=== PATIENT | male | born 1950 | race Caucasian/White ===

== ENCOUNTER 2018-01-18 14:55 | Inpatient (IN) | payer MEDICARE, OTHER, SELFPAY ==
[~2018-01-18] VITALS: Ht 172.7 cm; Wt 82.7 kg
[2018-01-18] MEDS ORDERED: OMEP-110 PO (15:12)
[2018-01-18] MEDS ORDERED: ATOR20TA9 PO (15:12)
[2018-01-18] MEDS ORDERED: METF500T27 PO (15:12)
[2018-01-18] MEDS ORDERED: LOSA25TA6 PO (15:12)
[2018-01-18] MEDS ORDERED: LEVO25TA4 PO (15:12)
[2018-01-18] MEDS ORDERED: MORPHINE SULFATE 4 MG/ML, 1ML ONE (15:24)
[2018-01-18] MEDS ORDERED: FAMOTIDINE 20 MG/2 ML ONE (15:25)
[2018-01-18] MEDS: FAMOTIDINE 20 MG/2 ML IVP ONE ×2 (15:26→15:28)
[2018-01-18] MEDS ORDERED: ONDANSETRON 2MG/ML, 2ML ONE (15:27)
[2018-01-18] MEDS ORDERED: SODIUM CHLORIDE FLUSH 10ML SYR IVF ONE (15:30)
[2018-01-18] MEDS ORDERED: SODIUM CHLORIDE 0.9% 1,000ML IVBOLUS ONE (15:30)
[2018-01-18] MEDS ORDERED: MORPHINE SULFATE 4 MG/ML, 1ML IVPush PRN (15:30)
[2018-01-18] MEDS ORDERED: ONDANSETRON 2MG/ML, 2ML IVPush ONE (15:30)
[2018-01-18 15:42] LABS: BASOPHILS # (AUTO) 0.04 x10^3/uL (0-0.1); BASOPHILS % (AUTO) 0 % (0-1); EOSINOPHILS # (AUTO) 0.01 x10^3/uL (0-0.4); EOSINOPHILS % (AUTO) 0 % (1-7); LYMPHOCYTES % (AUTO) 12 % (22-44); MD NO; MEAN CORPUSCULAR HEMOGLOBIN 33.2 pg (27.5-34.5); MEAN CORPUSCULAR HGB CONC 33.5 g/dL (33.2-36.2); MEAN CORPUSCULAR VOLUME 99.1 fL (81-97); MEAN PLATELET VOLUME 7.5 fL (7.4-10.4); MONOCYTES # (AUTO) 0.39 x10^3/uL (0.2-0.8); MONOCYTES % (AUTO) 5 % (2-9); NEUTROPHILS # (AUTO) 7.16 x10^3/uL (1.8-6.8); NEUTROPHILS % (AUTO) 83 % (42-75); PLATELET COUNT 197 x10^3/uL (130-400); RED BLOOD COUNT 4.15 x10^6/uL (4.38-5.82); RED CELL DISTRIBUTION WIDTH 13.8 % (9.4-14.8)
[2018-01-18 15:52] LABS: ANION GAP 24 mmol/L (5-15); CALCIUM 9.8 mg/dL (8.5-10.1); CHLORIDE 99 mmol/L (98-107); CREATININE 1.71 mg/dL (0.7-1.3)
[2018-01-18 15:53] LABS: ALANINE AMINOTRANSFERASE 48 U/L (12-78); ALBUMIN 4.5 g/dL (3.4-5.0)
[2018-01-18 15:55] LABS: ALKALINE PHOSPHATASE 72 U/L (45-117); BILIRUBIN,TOTAL 0.9 mg/dL (0.2-1.0); TOTAL PROTEIN 8.3 g/dL (6.4-8.2)
[2018-01-18 16:00] LABS: ACETONE, SERUM Large (80mg/dL) mg/dL (Negative)
[2018-01-18] MEDS ORDERED: HYDROmorphone 1 MG/ML, 1ML IV ONE (16:30)
[2018-01-18] MEDS ORDERED: HYDROmorphone 2 MG/ML, 1ML ONE (16:41)
[2018-01-18] MEDS: D5%-0.45% NACL 1,000 ML IV SCH ×2 (16:55→20:30)
[2018-01-18] MEDS ORDERED: POTASSIUM CHLORIDE 20 MEQ, MAGNESIUM SULFATE 1 GM, MVI ADULT 10 ML, THIAMINE 200 MG, FO... IV SCH (17:30)
[2018-01-18] MEDS ORDERED: LORazepam 1MG TABLET PO PRN ×4 (17:30)
[2018-01-18] MEDS ORDERED: ONDANSETRON ODT 4 MG PO PRN (17:30)
[2018-01-18] MEDS ORDERED: LORazepam 0.5MG TABLET PO PRN (17:30)
[2018-01-18] MEDS: INSULIN LISPRO 100 UNITS/ML, PEN SQ-INSULIN SCH ×2 (17:30→21:30)
[2018-01-18] MEDS ORDERED: LORazepam 2 MG/ML, 1ML IV PRN ×5 (17:30)
[2018-01-18 18:32] LABS: HEMOGLOBIN A1C 5.4 % (4.2-6.3)
[2018-01-18 18:40] VITALS: BP 151/91
[2018-01-18 20:49] VITALS: BP 168/85
[2018-01-18] MEDS: HEPARIN 5,000 UNITS/ML, 1ML SQ SCH (21:31)
[2018-01-18] MEDS: ATORVASTATIN 40 MG TABLET PO SCH (21:31)
[2018-01-19] VITALS (7 sets, daily range): BP systolic 149–205; BP diastolic 78–102
[2018-01-19] MEDS: ONDANSETRON 2MG/ML, 2ML IVPush PRN ×4 (00:07→21:47)
[2018-01-19] MEDS: hydrALAzine 20 MG/ML, 1ML IVPush PRN ×4 (02:54→18:09)
[2018-01-19] MEDS: HYDROmorphone 2 MG/ML, 1ML IVPush PRN ×5 (03:03→12:41)
[2018-01-19 05:49] LABS: ALBUMIN 4.1 g/dL (3.4-5.0); ANION GAP 13 mmol/L (5-15); CALCIUM 8.7 mg/dL (8.5-10.1); CHLORIDE 102 mmol/L (98-107)
[2018-01-19 05:53] LABS: BASOPHILS % (AUTO) 0 % (0-1); EOSINOPHILS % (AUTO) 0 % (1-7); LYMPHOCYTES # (AUTO) 0.25 x10^3/uL (1-3.4); LYMPHOCYTES % (AUTO) 3 % (22-44); MD NO; MEAN CORPUSCULAR HEMOGLOBIN 34.2 pg (27.5-34.5); MEAN CORPUSCULAR HGB CONC 33.9 g/dL (33.2-36.2); MEAN CORPUSCULAR VOLUME 100.7 fL (81-97); MEAN PLATELET VOLUME 7.2 fL (7.4-10.4); MONOCYTES # (AUTO) 0.49 x10^3/uL (0.2-0.8); MONOCYTES % (AUTO) 6 % (2-9); NEUTROPHILS # (AUTO) 7.46 x10^3/uL (1.8-6.8); NEUTROPHILS % (AUTO) 91 % (42-75); PLATELET COUNT 147 x10^3/uL (130-400); RED BLOOD COUNT 3.86 x10^6/uL (4.38-5.82); RED CELL DISTRIBUTION WIDTH 13.6 % (9.4-14.8)
[2018-01-19 05:56] LABS: ALANINE AMINOTRANSFERASE 40 U/L (12-78); ALKALINE PHOSPHATASE 61 U/L (45-117); BILIRUBIN,TOTAL 0.8 mg/dL (0.2-1.0); TOTAL PROTEIN 7.5 g/dL (6.4-8.2)
[2018-01-19] MEDS: HEPARIN 5,000 UNITS/ML, 1ML SQ SCH ×3 (06:28→21:51)
[2018-01-19] MEDS: INSULIN LISPRO 100 UNITS/ML, PEN SQ-INSULIN SCH ×4 (07:17→21:51)
[2018-01-19] MEDS: OMEPRAZOLE 20 MG CAPSULE.DR PO SCH (07:24)
[2018-01-19] MEDS: LEVOTHYROXINE 25 MCG TABLET PO SCH (07:24)
[2018-01-19] MEDS ORDERED: LOSARTAN 25MG TABLET PO SCH (09:00)
[2018-01-19] MEDS: CHLORDIAZEPOXIDE 25 MG CAPSULE PO SCH ×2 (15:59→21:52)
[2018-01-19] MEDS ORDERED: HYDROcodone/APAP 5/325 TABLET PO PRN (16:00)
[2018-01-19 17:42] LABS: ALBUMIN 4.2 g/dL (3.4-5.0); ANION GAP 12 mmol/L (5-15); CALCIUM 8.7 mg/dL (8.5-10.1); CHLORIDE 102 mmol/L (98-107)
[2018-01-19 17:43] LABS: CREATININE 1.39 mg/dL (0.7-1.3)
[2018-01-19] MEDS ORDERED: MAALOX/HYOSCYAMINE/LIDOCAINE 45 ML BTL PO ONE (18:00)
[2018-01-19] MEDS: SODIUM CHLORIDE 0.45% 1,000 ML IV SCH (18:00)
[2018-01-19 19:10] LABS: THYROID STIMULATING HORMONE 1.37 mIU/L (0.358-3.740)
[2018-01-19] MEDS: PANTOPRAZOLE 40 MG IV IVPush SCH (21:51)
[2018-01-19] MEDS: MAGNESIUM SULFATE 1 GM, MVI ADULT 10 ML, THIAMINE 200 MG, FOLIC ACID 1 MG in SODIUM CHL... IV SCH (21:52)
[2018-01-19] MEDS: ATORVASTATIN 40 MG TABLET PO SCH (21:52)
[2018-01-19] MEDS: GABAPENTIN 100 MG CAPSULE PO SCH (21:52)
[2018-01-20 03:39] VITALS: BP 156/98
[2018-01-20] MEDS: SODIUM CHLORIDE 0.45% 1,000 ML IV SCH (05:02)
[2018-01-20] MEDS: HEPARIN 5,000 UNITS/ML, 1ML SQ SCH (06:01)
[2018-01-20] MEDS: INSULIN LISPRO 100 UNITS/ML, PEN SQ-INSULIN SCH ×4 (07:00→21:28)
[2018-01-20 08:00] VITALS: BP 166/90
[2018-01-20] MEDS ORDERED: LACTULOSE 20 GM/30 ML UDC ONE (08:40)
[2018-01-20] MEDS: LEVOTHYROXINE 25 MCG TABLET PO SCH (08:58)
[2018-01-20] MEDS: CHLORDIAZEPOXIDE 25 MG CAPSULE PO SCH ×3 (08:58→21:27)
[2018-01-20] MEDS: OMEPRAZOLE 20 MG CAPSULE.DR PO SCH (08:58)
[2018-01-20] MEDS: AMLODIPINE 2.5 MG TABLET PO SCH (08:58)
[2018-01-20] MEDS: GABAPENTIN 100 MG CAPSULE PO SCH ×3 (08:58→21:27)
[2018-01-20] MEDS: PANTOPRAZOLE 40 MG IV IVPush SCH ×2 (08:59→21:27)
[2018-01-20] MEDS ORDERED: LACTULOSE 20 GM/30 ML UDC PO PRN (09:00)
[2018-01-20] MEDS: D5%-0.9% NACL+KCL 20MEQ 1,000 ML IV SCH ×2 (09:34→21:26)
[2018-01-20] MEDS: ACETAMINOPHEN 325 MG TABLET PO PRN (11:49)
[2018-01-20 14:00] VITALS: BP 149/73
[2018-01-20] MEDS ORDERED: MAGNESIUM SULFATE 1 GM, MVI ADULT 10 ML, THIAMINE 200 MG, FOLIC ACID 1 MG in SODIUM CHL... IV SCH (17:30)
[2018-01-20] MEDS ORDERED: SODIUM CHLORIDE 0.9%, 500ML IVBOLUS ONE (18:00)
[2018-01-20 19:30] VITALS: BP 117/87
[2018-01-20] MEDS ORDERED: DILTIAZEM 125 MG in SODIUM CHLORIDE 0.9% 100 ML IV ONE (20:00)
[2018-01-20 20:30] LABS: FREE T4 (FREE THYROXINE) 1.14 ng/dL (0.76-1.46); THYROID STIMULATING HORMONE 1.16 mIU/L (0.358-3.740)
[2018-01-20] MEDS ORDERED: MAGNESIUM SULFATE PMX 2GM/50ML 50 ML IV ONE ×2 (21:00)
[2018-01-20] MEDS: ATORVASTATIN 40 MG TABLET PO SCH (21:27)
[2018-01-21 01:53] VITALS: BP 150/85
[2018-01-21 04:11] VITALS: BP 148/93
[2018-01-21 04:44] LABS: ALBUMIN 2.6 g/dL (3.4-5.0); ANION GAP 6 mmol/L (5-15); CALCIUM 7.4 mg/dL (8.5-10.1); CHLORIDE 105 mmol/L (98-107); CREATININE 1.32 mg/dL (0.7-1.3); TRIGLYCERIDES 116 mg/dL (50-200)
[2018-01-21] MEDS: MAGNESIUM SULFATE 1 GM, MVI ADULT 10 ML, THIAMINE 200 MG, FOLIC ACID 1 MG in SODIUM CHL... IV SCH (05:35)
[2018-01-21] MEDS: D5%-0.9% NACL+KCL 20MEQ 1,000 ML IV SCH (07:00)
[2018-01-21 07:29] VITALS: BP 148/82
[2018-01-21] MEDS: AMLODIPINE 2.5 MG TABLET PO SCH (08:28)
[2018-01-21] MEDS: CHLORDIAZEPOXIDE 25 MG CAPSULE PO SCH (08:28)
[2018-01-21] MEDS: OMEPRAZOLE 20 MG CAPSULE.DR PO SCH (08:28)
[2018-01-21] MEDS: PANTOPRAZOLE 40 MG IV IVPush SCH ×2 (08:28→20:38)
[2018-01-21] MEDS: INSULIN LISPRO 100 UNITS/ML, PEN SQ-INSULIN SCH ×5 (08:28→22:00)
[2018-01-21] MEDS: LEVOTHYROXINE 25 MCG TABLET PO SCH (08:28)
[2018-01-21] MEDS: GABAPENTIN 100 MG CAPSULE PO SCH ×3 (08:28→20:39)
[2018-01-21] MEDS ORDERED: SODIUM PHOSPHATE 20 MMOL in SODIUM CHLORIDE 0.9% 500 ML IV ONE (10:00)
[2018-01-21 12:53] VITALS: BP 144/80
[2018-01-21] MEDS: ACETAMINOPHEN 325 MG TABLET PO PRN (18:22)
[2018-01-21 19:45] VITALS: BP 151/76
[2018-01-21] MEDS: ATORVASTATIN 40 MG TABLET PO SCH (20:39)
[2018-01-22 00:46] VITALS: BP 155/85
[2018-01-22 04:31] LABS: ALBUMIN 2.6 g/dL (3.4-5.0); ANION GAP 9 mmol/L (5-15); CALCIUM 7.4 mg/dL (8.5-10.1); CHLORIDE 105 mmol/L (98-107)
[2018-01-22 04:34] LABS: CREATININE 1.22 mg/dL (0.7-1.3)
[2018-01-22] MEDS ORDERED: SODIUM PHOSPHATE 20 MMOL in SODIUM CHLORIDE 0.9% 500 ML IV ONE (06:30)
[2018-01-22] MEDS: PANTOPRAZOLE 40 MG IV IVPush SCH (07:57)
[2018-01-22] MEDS: LEVOTHYROXINE 25 MCG TABLET PO SCH (07:57)
[2018-01-22] MEDS: OMEPRAZOLE 20 MG CAPSULE.DR PO SCH (07:57)
[2018-01-22] MEDS: GABAPENTIN 100 MG CAPSULE PO SCH (07:57)
[2018-01-22 08:00] VITALS: BP 141/84
[2018-01-22] MEDS: AMLODIPINE 2.5 MG TABLET PO SCH (08:02)
[2018-01-22] MEDS: INSULIN LISPRO 100 UNITS/ML, PEN SQ-INSULIN SCH ×2 (08:04→12:23)
[2018-01-22] MEDS ORDERED: D5%-0.9% NACL+KCL 20MEQ 1,000 ML IV SCH (08:30)
[2018-01-22] MEDS ORDERED: NEUTRA PHOS K 250 MG TABLET PO SCH (09:00)
== END 2018-01-22 15:45 | disposition home or self-care (01) | DRG 438 ==
LOC: ED 16:53 → EDIP 16:54 → ED 17:22 → 4NOR 18:26 → 4WST 01-19 17:22
PROVIDERS: ADMIT Internal Medicine; ATTEND Hospitalist
DX: K85.20 Alcohol induced acute pancreatitis without necrosis or infection (principal); N17.0 Acute kidney failure with tubular necrosis; E87.2 Acidosis; E03.9 Hypothyroidism, unspecified; E11.9 Type 2 diabetes mellitus without complications; E78.5 Hyperlipidemia, unspecified; E87.5 Hyperkalemia; F10.129 Alcohol abuse with intoxication, unspecified; F12.90 Cannabis use, unspecified, uncomplicated; I10 Essential (primary) hypertension; K70.10 Alcoholic hepatitis without ascites; Z79.899 Other long term (current) drug therapy; Z82.49 Family history of ischemic heart disease and other diseases of the circulatory system; Z82.5 Family history of asthma and other chronic lower respiratory diseases; Z86.19 Personal history of other infectious and parasitic diseases
CPT/HCPCS: 36415; 74018; 76700; 80048; 80053; 80307; 82010; 82040; 82607; 82746; 82962; 83036; 83690; 83735; 84100; 84439; 84443; 84478; 85025; 93005; 93306; 96361; 96374; 96375; 99285; G0378; J1170; J1644; J2405; J3411; J3475; J3480; C9113; J0360; J1815; J2060; J7030; J7040; S0028

== ENCOUNTER → 2018-03-11 | Outpatient (CLI) | payer MEDICARE ==
[~2018-03-11] MED LIST: ATOR20TA37 PO; LEVO25TA4 PO; LOSA25TA6 PO; METF500T27 PO; OMEP-110 PO; OMNIPAQUE 350 MG/ML, 100ML BOTTLE ONE
[2018-03-11 10:11] LABS: CREATININE 1.68 mg/dL (0.7-1.3)
== END | disposition home or self-care (01) ==
LOC: RAD 09:28
PROVIDERS: ATTEND Physician Assistant
DX: K83.1 Obstruction of bile duct (principal)
CPT/HCPCS: 36415; 74170; 82565; Q9967

== ENCOUNTER → 2018-06-23 | Outpatient (CLI) | payer MEDICARE ==
[~2018-06-23] MED LIST changes: +INSU300I SC; +IRON; +LOSA1TAB22 PO; +LOSA25TA25 PO; -LOSA25TA6 PO; +MULT-516 PO; -OMNIPAQUE 350 MG/ML, 100ML BOTTLE ONE; +SERT50TA28 PO
[2018-06-23 16:13] LABS: ALANINE AMINOTRANSFERASE 26 U/L (12-78); ALBUMIN 4.5 g/dL (3.4-5.0); ANION GAP 10 mmol/L (5-15); CALCIUM 9.8 mg/dL (8.5-10.1); CHLORIDE 101 mmol/L (98-107); CREATININE 1.71 mg/dL (0.7-1.3)
[2018-06-23 16:15] LABS: ALKALINE PHOSPHATASE 109 U/L (45-117); BILIRUBIN,TOTAL 0.4 mg/dL (0.2-1.0); TOTAL PROTEIN 8.1 g/dL (6.4-8.2)
== END | disposition home or self-care (01) ==
LOC: STAR 15:06
PROVIDERS: ATTEND Internal Medicine
DX: Z01.818 Encounter for other preprocedural examination (principal); I51.7 Cardiomegaly; I44.0 Atrioventricular block, first degree
CPT/HCPCS: 36415; 80053; 93005

== ENCOUNTER 2018-06-28 05:22 | Day surgery (SDC) | payer MEDICARE ==
[2018-06-23 15:32] VITALS: BP 135/82
[~2018-06-28] VITALS: Ht 172.7 cm; Wt 72.8 kg
[2018-06-28] MEDS ORDERED: LACTATED RINGERS 1,000 ML IV SCH (05:56)
[2018-06-28 05:57] VITALS: BP 135/82
[2018-06-28] MEDS ORDERED: MIDAZOLAM 1 MG/ML, 2ML ONE (07:27)
[2018-06-28] MEDS ORDERED: FENTANYL PF 100 MCG/2ML IV PRN (07:30)
[2018-06-28] MEDS ORDERED: ONDANSETRON 2MG/ML, 2ML IV PRN (07:30)
[2018-06-28] MEDS ORDERED: MIDAZOLAM 1 MG/ML, 2ML IV PRN (07:30)
[2018-06-28] MEDS ORDERED: METOPROLOL 1 MG/ML, 5ML IV PRN (07:30)
[2018-06-28] MEDS ORDERED: ALBUTEROL/IPRATROPIUM 2.5MG/0.5MG, 3 ML NPPB PRN (07:30)
[2018-06-28] MEDS ORDERED: OXYcodone 5 MG/5 ML ORAL.SOL UDC PO PRN (07:30)
[2018-06-28] MEDS ORDERED: PROMETHAZINE 25 MG/ML, 1ML IV PRN (07:30)
[2018-06-28] MEDS ORDERED: PROPOFOL 10 MG/ML, 20ML ONE (08:14)
[2018-06-28] MEDS ORDERED: PHENYLEPHRINE 10 MG/ML ONE (11:05)
== END 2018-06-28 09:35 | disposition home or self-care (01) ==
LOC: OUT 05:22
PROVIDERS: ATTEND Internal Medicine Geriatric Medicine
DX: K86.1 Other chronic pancreatitis (principal); K70.30 Alcoholic cirrhosis of liver without ascites; K22.2 Esophageal obstruction; E78.5 Hyperlipidemia, unspecified; K21.9 Gastro-esophageal reflux disease without esophagitis; I48.91 Unspecified atrial fibrillation; K83.9 Disease of biliary tract, unspecified; E03.9 Hypothyroidism, unspecified; E11.9 Type 2 diabetes mellitus without complications; I10 Essential (primary) hypertension; Z72.89 Other problems related to lifestyle
CPT/HCPCS: 43259; 82962; J2250; J2370; J2704; J7120

== ENCOUNTER → 2018-08-09 | Outpatient (CLI) | payer MEDICARE ==
[2018-08-09 12:35] LABS: BASOPHILS # (AUTO) 0.02 x10^3/uL (0-0.1); BASOPHILS % (AUTO) 0 % (0-1); EOSINOPHILS % (AUTO) 3 % (1-7); LYMPHOCYTES # (AUTO) 1.29 x10^3/uL (1-3.4); LYMPHOCYTES % (AUTO) 21 % (22-44); MD NO; MEAN CORPUSCULAR HEMOGLOBIN 30.8 pg (27.5-34.5); MEAN CORPUSCULAR VOLUME 90.5 fL (81-97); MEAN PLATELET VOLUME 7.3 fL (7.4-10.4); MONOCYTES # (AUTO) 0.41 x10^3/uL (0.2-0.8); MONOCYTES % (AUTO) 7 % (2-9); NEUTROPHILS # (AUTO) 4.13 x10^3/uL (1.8-6.8); NEUTROPHILS % (AUTO) 68 % (42-75); PLATELET COUNT 303 x10^3/uL (130-400); RED CELL DISTRIBUTION WIDTH 14.4 % (9.4-14.8)
[2018-08-09 12:47] LABS: CHLORIDE 105 mmol/L (98-107)
[2018-08-09 12:49] LABS: HEMOGLOBIN A1C 6.3 % (4.2-6.3)
[2018-08-09 13:05] LABS: ALANINE AMINOTRANSFERASE 21 U/L (12-78); ALBUMIN 4.4 g/dL (3.4-5.0); ALKALINE PHOSPHATASE 89 U/L (45-117); ANION GAP 7 mmol/L (5-15); BILIRUBIN,TOTAL 0.4 mg/dL (0.2-1.0); CALCIUM 9.6 mg/dL (8.5-10.1); CHOLESTEROL, TOTAL 354 mg/dL (140-239); CREATININE 1.95 mg/dL (0.7-1.3); HDL CHOL % 12 % (26-37); HDL CHOLESTEROL (DIRECT) 44 mg/dL (40-60); TOTAL PROTEIN 7.8 g/dL (6.4-8.2); TRIGLYCERIDES 421 mg/dL (50-200)
== END | disposition home or self-care (01) ==
LOC: LAB 12:16
PROVIDERS: ATTEND Physician Assistant
DX: D64.9 Anemia, unspecified (principal); E11.9 Type 2 diabetes mellitus without complications; N28.9 Disorder of kidney and ureter, unspecified
CPT/HCPCS: 36415; 80053; 80061; 83036; 84443; 85025

== ENCOUNTER 2018-10-06 14:54 | Outpatient (CLI) | payer MEDICARE ==
[2018-10-06 15:12] LABS: BASOPHILS # (AUTO) 0.04 x10^3/uL (0-0.1); BASOPHILS % (AUTO) 1 % (0-1); EOSINOPHILS % (AUTO) 2 % (1-7); LYMPHOCYTES # (AUTO) 1.65 x10^3/uL (1-3.4); LYMPHOCYTES % (AUTO) 25 % (22-44); MD NO; MEAN CORPUSCULAR HEMOGLOBIN 31.1 pg (27.5-34.5); MEAN CORPUSCULAR HGB CONC 33.4 g/dL (33.2-36.2); MEAN PLATELET VOLUME 7.2 fL (7.4-10.4); MONOCYTES # (AUTO) 0.38 x10^3/uL (0.2-0.8); MONOCYTES % (AUTO) 6 % (2-9); NEUTROPHILS # (AUTO) 4.42 x10^3/uL (1.8-6.8); NEUTROPHILS % (AUTO) 67 % (42-75); PLATELET COUNT 299 x10^3/uL (130-400); RED BLOOD COUNT 4.14 x10^6/uL (4.38-5.82); RED CELL DISTRIBUTION WIDTH 14.9 % (9.4-14.8)
[2018-10-06 15:25] LABS: ALBUMIN 4.3 g/dL (3.4-5.0); ANION GAP 9 mmol/L (5-15); CALCIUM 9.1 mg/dL (8.5-10.1); CHLORIDE 101 mmol/L (98-107); CHOLESTEROL, TOTAL 182 mg/dL (140-239)
[2018-10-06 15:35] LABS: % IRON SATURATION 38 % (20-55); ALANINE AMINOTRANSFERASE 31 U/L (12-78); ALKALINE PHOSPHATASE 110 U/L (45-117); BILIRUBIN,TOTAL 0.7 mg/dL (0.2-1.0); CHOL/HDL RATIO 3.9; CREATININE 1.75 mg/dL (0.7-1.3); HDL CHOL % 26 % (26-37); HDL CHOLESTEROL (DIRECT) 47 mg/dL (40-60); IRON LEVEL 106 mcg/dL (65-175); LDL CHOLESTEROL,CALCULATED 95 mg/dL (54-169); TOTAL IRON BINDING CAPACITY 279 mcg/dL (250-450); TOTAL PROTEIN 7.8 g/dL (6.4-8.2); TRIGLYCERIDES 201 mg/dL (50-200); VLDL CHOLESTEROL 40 mg/dL (0-25)
== END 2018-10-06 23:59 | disposition home or self-care (01) ==
LOC: LAB 14:54
PROVIDERS: ATTEND Physician Assistant
DX: E11.9 Type 2 diabetes mellitus without complications (principal); K70.30 Alcoholic cirrhosis of liver without ascites; N28.9 Disorder of kidney and ureter, unspecified; D64.9 Anemia, unspecified; E03.9 Hypothyroidism, unspecified; I10 Essential (primary) hypertension
CPT/HCPCS: 36415; 80053; 80061; 82728; 83540; 83550; 84439; 84443; 84480; 85025

== ENCOUNTER 2019-04-05 14:21 | Outpatient (CLI) | payer MEDICARE ==
[2019-04-05 14:51] LABS: CHLORIDE 102 mmol/L (98-107)
[2019-04-05 14:53] LABS: MICROSCOPIC NOT IND
[2019-04-05 15:00] LABS: ALANINE AMINOTRANSFERASE 40 U/L (12-78); ALBUMIN 4.4 g/dL (3.4-5.0); ALKALINE PHOSPHATASE 135 U/L (45-117); ANION GAP 8 mmol/L (5-15); BILIRUBIN,TOTAL 0.7 mg/dL (0.2-1.0); CHOL/HDL RATIO 5.8; CHOLESTEROL, TOTAL 251 mg/dL (140-239); CREATININE 2.19 mg/dL (0.7-1.3); HDL CHOL % 17 % (26-37); HDL CHOLESTEROL (DIRECT) 43 mg/dL (40-60); LDL CHOLESTEROL,CALCULATED 143 mg/dL (54-169); LDL/HDL RATIO 3.3 (0.5-3.0); TOTAL PROTEIN 7.9 g/dL (6.4-8.2); TRIGLYCERIDES 326 mg/dL (50-200); VLDL CHOLESTEROL 65 mg/dL (0-25)
== END 2019-04-05 23:59 | disposition home or self-care (01) ==
LOC: LAB 14:21
PROVIDERS: ATTEND Internal Medicine Endocrinology, Diabetes & Metabolism
DX: E11.65 Type 2 diabetes mellitus with hyperglycemia (principal); E03.9 Hypothyroidism, unspecified; E55.9 Vitamin D deficiency, unspecified; I12.9 Hypertensive chronic kidney disease with stage 1 through stage 4 chronic kidney disease, or unspecified chronic kidney disease; E11.22 Type 2 diabetes mellitus with diabetic chronic kidney disease; N18.3 Chronic kidney disease, stage 3 (moderate); E87.1 Hypo-osmolality and hyponatremia; D63.1 Anemia in chronic kidney disease
CPT/HCPCS: 36415; 80053; 80061; 81003; 82043; 82310; 82570; 84100; 84105; 84156

== ENCOUNTER 2020-10-06 00:33 | Inpatient (IN) | payer MEDICARE ==
[~2020-10-06] VITALS: Ht 172.7 cm; Wt 76.9 kg
[2020-10-06 01:25] LABS: BASOPHILS % (AUTO) 0 % (0-1); EOSINOPHILS % (AUTO) 1 % (1-7); LYMPHOCYTES % (AUTO) 8 % (22-44); MEAN CORPUSCULAR HEMOGLOBIN 34.3 pg (27.5-34.5); MEAN CORPUSCULAR HGB CONC 35.3 g/dL (33.2-36.2); MEAN PLATELET VOLUME 7.3 fL (7.4-10.4); MONOCYTES % (AUTO) 8 % (2-9); NEUTROPHILS % (AUTO) 84 % (42-75); PLATELET COUNT 202 x10^3/uL (130-400); RED BLOOD COUNT 3.79 x10^6/uL (4.38-5.82); RED CELL DISTRIBUTION WIDTH 14.5 % (9.4-14.8)
[2020-10-06] MEDS ORDERED: SODIUM CHLORIDE FLUSH 10ML SYR IVF ONE (01:30)
[2020-10-06] MEDS ORDERED: ONDANSETRON 2MG/ML, 2ML IVPush ONE ×2 (01:30→04:30)
[2020-10-06] MEDS ORDERED: SODIUM CHLORIDE 0.9% 1,000ML IVBOLUS ONE ×2 (01:30→04:30)
[2020-10-06 01:36] LABS: ALANINE AMINOTRANSFERASE 27 U/L (12-78); ALBUMIN 3.9 g/dL (3.4-5.0); ANION GAP 6 mmol/L (5-15); CALCIUM 8.7 mg/dL (8.5-10.1); CHLORIDE 97 mmol/L (98-107); CREATININE 1.78 mg/dL (0.7-1.3)
[2020-10-06 01:40] LABS: ALKALINE PHOSPHATASE 74 U/L (45-117); BILIRUBIN,TOTAL 0.9 mg/dL (0.2-1.0); TOTAL PROTEIN 7.5 g/dL (6.4-8.2); TROPONIN I 0.016 ng/mL (0.000-0.045)
[2020-10-06] MEDS ORDERED: ONDANSETRON 2MG/ML, 2ML ONE ×2 (01:40→03:58)
[2020-10-06] MEDS ORDERED: MORPHINE SULFATE 4 MG/ML, 1ML ONE ×2 (01:41→03:58)
[2020-10-06] MEDS: MORPHINE SULFATE 4 MG/ML, 1ML IVPush PRN ×2 (01:48→04:09)
[2020-10-06] MEDS ORDERED: OMNIPAQUE 350 MG/ML, 100ML BOTTLE ONE (03:14)
[2020-10-06 03:21] LABS: MICROSCOPIC NOT IND
[2020-10-06] MEDS ORDERED: MORPHINE SULFATE 4 MG/ML, 1ML IVPush PRN (04:30)
[2020-10-06] MEDS ORDERED: LABETALOL 5MG/ML, 20ML IVPush PRN (05:00)
[2020-10-06] MEDS ORDERED: PROMETHAZINE 12.5 MG SUPP PR PRN (05:00)
[2020-10-06] MEDS ORDERED: ONDANSETRON 2MG/ML, 2ML IVPush PRN (05:00)
[2020-10-06] MEDS ORDERED: LORazepam 2 MG/ML, 1ML IV PRN ×5 (05:00)
[2020-10-06] MEDS ORDERED: POLYETHYLENE GLYCOL 17 GM PACKET PO PRN (05:00)
[2020-10-06] MEDS ORDERED: LORazepam 0.5MG TABLET PO PRN (05:00)
[2020-10-06] MEDS ORDERED: ACETAMINOPHEN 650 MG SUPP PR PRN (05:00)
[2020-10-06] MEDS ORDERED: MELATONIN 5 MG TABLET PO PRN (05:00)
[2020-10-06] MEDS ORDERED: LORazepam 1MG TABLET PO PRN ×4 (05:00)
--- NOTE | 2020-10-06 05:07 | NUR ---
Report to Luiza ROLLINS
[2020-10-06 05:28] VITALS: BP 151/73
[2020-10-06] MEDS: HYDROmorphone 2 MG/ML, 1ML IVPush PRN ×2 (06:03→19:27)
[2020-10-06] MEDS: LACTATED RINGERS 1,000 ML IV SCH ×2 (06:03→16:11)
[2020-10-06] MEDS ORDERED: ASPI81TA45 PO (06:15)
[2020-10-06] MEDS ORDERED: DILT120C83 PO (06:15)
[2020-10-06] MEDS ORDERED: LOSA1TAB19 PO (06:15)
[2020-10-06] MEDS ORDERED: RIVA15TA PO (06:15)
[2020-10-06 07:58] VITALS: BP 138/72
[2020-10-06] MEDS ORDERED: FAMOTIDINE 20 MG/2 ML IVPush SCH (09:00)
[2020-10-06] MEDS: MULTIVITAMINS/MINERALS TABLET PO SCH (09:39)
[2020-10-06] MEDS ORDERED: [UNRECOGNIZED DRUG - REMARK] MC SCH (10:00)
[2020-10-06] MEDS ORDERED: POTASSIUM CHLORIDE 40 MEQ in SODIUM CHLORIDE 0.9% 500 ML IV ONE (11:30)
[2020-10-06] MEDS: INSULIN GLARGINE 100 UNITS/ML, PEN SQ-INSULIN SCH (11:45)
[2020-10-06 12:41] VITALS: BP 154/84
[2020-10-06] MEDS ORDERED: RIVAROXABAN 15 MG TABLET PO SCH (17:00)
[2020-10-06 18:59] VITALS: BP 160/91
[2020-10-06] MEDS ORDERED: ATORVASTATIN 20 MG TABLET PO SCH (21:00)
[2020-10-07] MEDS: LACTATED RINGERS 1,000 ML IV SCH ×2 (00:21→08:37)
[2020-10-07 02:30] VITALS: BP 143/69
[2020-10-07 05:52] LABS: BASOPHILS % (AUTO) 0 % (0-1); EOSINOPHILS % (AUTO) 2 % (1-7); LYMPHOCYTES % (AUTO) 11 % (22-44); MEAN CORPUSCULAR HEMOGLOBIN 34.5 pg (27.5-34.5); MEAN CORPUSCULAR HGB CONC 35.1 g/dL (33.2-36.2); MEAN PLATELET VOLUME 7.9 fL (7.4-10.4); MONOCYTES % (AUTO) 11 % (2-9); NEUTROPHILS % (AUTO) 76 % (42-75); PLATELET COUNT 154 x10^3/uL (130-400); RED BLOOD COUNT 3.16 x10^6/uL (4.38-5.82); RED CELL DISTRIBUTION WIDTH 14.6 % (9.4-14.8)
[2020-10-07 06:00] LABS: ALBUMIN 2.9 g/dL (3.4-5.0); ANION GAP 7 mmol/L (5-15); CALCIUM 8.1 mg/dL (8.5-10.1); CHLORIDE 100 mmol/L (98-107)
[2020-10-07 06:06] LABS: ALANINE AMINOTRANSFERASE 32 U/L (12-78); ALKALINE PHOSPHATASE 106 U/L (45-117); BILIRUBIN, DIRECT 0.6 mg/dL (0.1-0.2); BILIRUBIN,INDIRECT 0.8 mg/dL (0.0-2.0); BILIRUBIN,TOTAL 1.4 mg/dL (0.2-1.0); CREATININE 1.15 mg/dL (0.7-1.3); TOTAL PROTEIN 5.8 g/dL (6.4-8.2)
[2020-10-07] MEDS: MULTIVITAMINS/MINERALS TABLET PO SCH (08:37)
[2020-10-07] MEDS: INSULIN GLARGINE 100 UNITS/ML, PEN SQ-INSULIN SCH (08:40)
[2020-10-07 08:44] VITALS: BP 161/90
[2020-10-07] MEDS ORDERED: INSULIN GLARGINE HUM REC ANLOG 28 UNIT SC SCH (09:00)
[2020-10-07] MEDS ORDERED: LEVOTHYROXINE 50 MCG TABLET PO SCH (09:00)
[2020-10-07] MEDS ORDERED: SERTRALINE 50MG TABLET PO SCH (09:00)
[2020-10-07] MEDS ORDERED: ASPIRIN 81 MG TABLET EC PO SCH (09:00)
[2020-10-07] MEDS ORDERED: MULTIVITAMIN 1 TABLET PO SCH (09:00)
[2020-10-07] MEDS ORDERED: DILTIAZEM 120 MG CAP.ER.24H PO SCH (09:00)
[2020-10-07 12:03] VITALS: BP 176/92
[2020-10-07] MEDS ORDERED: HYDR-826 PO ×3 (13:56→14:06)
[2020-10-07] MEDS ORDERED: FAMOTIDINE 20 MG/2 ML IVPush SCH (21:00)
== END 2020-10-07 17:33 | disposition home or self-care (01) | DRG 438 ==
LOC: ED 01:30 → EDIP 04:39 → 3N 05:22
PROVIDERS: ADMIT Internal Medicine; ATTEND Internal Medicine
DX: K85.20 Alcohol induced acute pancreatitis without necrosis or infection (principal); N17.0 Acute kidney failure with tubular necrosis; E87.1 Hypo-osmolality and hyponatremia; D68.69 Other thrombophilia; D53.9 Nutritional anemia, unspecified; E03.9 Hypothyroidism, unspecified; E11.65 Type 2 diabetes mellitus with hyperglycemia; E78.5 Hyperlipidemia, unspecified; E87.6 Hypokalemia; E87.8 Other disorders of electrolyte and fluid balance, not elsewhere classified; F10.21 Alcohol dependence, in remission; F12.90 Cannabis use, unspecified, uncomplicated; F19.10 Other psychoactive substance abuse, uncomplicated; F32.9 Major depressive disorder, single episode, unspecified; F41.9 Anxiety disorder, unspecified; I11.0 Hypertensive heart disease with heart failure; Z82.49 Family history of ischemic heart disease and other diseases of the circulatory system; Z83.3 Family history of diabetes mellitus; I48.91 Unspecified atrial fibrillation; Z83.6 Family history of other diseases of the respiratory system; Z79.01 Long term (current) use of anticoagulants; Z79.4 Long term (current) use of insulin; Z79.899 Other long term (current) drug therapy
CPT/HCPCS: 36415; 74177; 80048; 80053; 80076; 81003; 82962; 83690; 83735; 84100; 84484; 85025; 93005; 96361; 96374; 96375; G0378; J1170; J2405; J3480; Q9967; J1815; J2270; J7030; J7040; J7120